=== PATIENT | female | born 1990 | race Two or more races ===

== ENCOUNTER 2017-05-31 14:49 | Emergency (ER) | payer MEDICAID ==
[~2017-05-31] VITALS: Ht 162.6 cm; Wt 104.8 kg
[~2017-05-31 14:49] MED LIST: CEPHALEXIN500 MG ORAL; CIPRO500 MG PO; DOXYCYCLINE MO100 MG ORAL; FERROUS SULFAT325 MG PO; HUMALOG; IBUPROFEN600 MG ORAL; IRON; KEFLEX500 MG ORAL; LANTUS5 UNITS SUBQ; LO-OVRAL-281 EACH PO; MACROBID100 MG ORAL; NORGESTREL-ETH1 EAC1 PO; NOVOLOG100 UNIT/3 SUBQ; NYSTATIN-TRIAMC15 G2 TP; ONDANSETRON ODT4 MG PO; PHENAZOPYRIDIN100 MG ORAL; PHENAZOPYRIDIN200 MG ORAL; REGLAN10 MG PO; ZOFRAN4 MG ORAL
[2017-05-31 17:00] VITALS: BP 120/78
[2017-05-31 17:20] LABS: BASOPHILS % (AUTO) 0.7 % (0.0-2.0); EOSINOPHILS % (AUTO) 1.1 % (0.0-3.0); MEAN CORPUSCULAR HEMOGLOBIN 30.5 PG (27.0-31.0); MEAN CORPUSCULAR HGB CONC 32.9 G/DL (32.0-36.0); MEAN CORPUSCULAR VOLUME 93 FL (80-99); MEAN PLATELET VOLUME 7.9 FL (6.5-10.1); MONOCYTES % (AUTO) 5.9 % (1.0-10.0); NEUTROPHILS % (AUTO) 72.3 % (45.0-75.0); PLATELET COUNT 307 K/UL (150-450); RED BLOOD COUNT 4.23 M/UL (4.20-5.40); WHITE BLOOD COUNT 12.3 K/UL (4.8-10.8)
[2017-05-31 17:35] LABS: INR 0.9 (0.9-1.1); PROTHROMBIN TIME 9.9 SEC (9.30-11.50)
[2017-05-31 17:40] LABS: ALANINE AMINOTRANSFERASE 16 U/L (3-33); ALBUMIN/GLOBULIN RATIO 1.1 (1.0-2.7); ANION GAP 12 (5-15); ASPARTATE AMINO TRANSFERASE 13 U/L (5-40); CALCIUM 9.1 mg/dL (8.6-10.2); CARBON DIOXIDE 26 mEQ/L (20-30); CHLORIDE 102 mEQ/L (98-107); GLOMERULAR FILTRATION RATE > 60 mL/min (>60); HEMOLYSIS 1; SODIUM 140 mEQ/L (135-145)
[2017-05-31] MEDS ORDERED: NORGESTIMATE-E1 EAC1 PO (18:09)
[2017-05-31] MEDS ORDERED: IBUPROFEN600 MG ORAL (18:09)
[2017-05-31 18:20] VITALS: BP 118/68
--- NOTE | 2017-05-31 22:46 | Emergency Room Report ---
History of Present Illness General Chief Complaint: Female Urogenital Problems Source: Patient, Medical Record Present Illness HPI The patient is a 26-year-old female presenting with heavy vaginal bleeding. The patient states that she began her period 2 months prior and has been bleeding every day since then. She states that she has to change her pad every 5 minutes. She also describes pain as 10/10 dull ache to the vaginal region. She denies being on any medications including contraceptives. She denies radiating pain . She denies any other discharge. She denies dysuria or increased urinary frequency. She denies back pain. Allergies: Coded Allergies: No Known Allergies (Unverified , 02/14/16) Patient History Past Medical History: see triage record Pertinent Family History: none Last Menstrual Period: on period Now: No Reviewed Nursing Documentation: PMH: Agreed, PSxH: Agreed Nursing Documentation-PMH Past Medical History: No History, Except For Hx Diabetes: Yes - type 1 Hx Gastrointestinal Problems: Yes - ANEMIA Review of Systems All Other Systems: negative except mentioned in HPI Physical Exam Vital Signs Date Time Temp Pulse Resp B/P Pulse Ox O2 Delivery O2 Flow Rate FiO2 05/31/17 15:21 98.2 85 19 115/80 98 Room Air Sp02 EP Interpretation: reviewed, normal General Appearance: no apparent distress, alert, GCS 15, non-toxic Head: normocephalic, atraumatic Eyes: bilateral eye PERRL, bilateral eye normal inspection ENT: hearing grossly normal, normal pharynx, no angioedema, normal voice Neck: full range of motion, supple/symm/no masses Respiratory: chest non-tender, lungs clear, normal breath sounds, speaking full sentences Cardiovascular #1: regular rate, rhythm, no edema Gastrointestinal: normal bowel sounds, non tender, soft, non-distended, no guarding, no rebound Rectal: deferred Genitourinary: normal inspection, no CVA tenderness Musculoskeletal: back normal, gait/station normal, normal range of motion, non- tender Neurologic: alert, oriented x3, responsive, motor strength/tone normal, sensory intact, speech normal Psychiatric: judgement/insight normal, memory normal, mood/affect normal, no suicidal/homicidal ideation Skin: normal color, no rash, warm/dry, well hydrated Medical Decision Making PA Attestation Dr. Terry is my supervising physician. Patient management was discussed with my supervising physician Diagnostic Impression: Primary Impression: Dysfunctional uterine bleeding ER Course The patient is a 26-year-old female presenting with heavy vaginal bleeding. Differential diagnosis considered but not limited to: UTI, vaginitis, , DUB, uterine fibroids, among others PE: vitals WNL. NAD Abdomen: Normal appearance. Non distended. No ecchymosis. Normal BS. Non TTP. No McBurney point tenderness. No guarding. No CVA tenderness blood work shows mild leukocytosis, otherwise unremarkable No . Pt refused to provide urine. Pelvic US unremarkable. No fibroids. [facility] and low dose OCP. SHe needs to FU with PMD and OBGYN JOSE Laboratory Tests Test 05/31/17 16:45 White Blood Count 12.3 K/UL (4.8-10.8) H Red Blood Count 4.23 M/UL (4.20-5.40) Hemoglobin 12.9 G/DL (12.0-16.0) Hematocrit 39.3 % (37.0-47.0) Mean Corpuscular Volume 93 FL (80-99) Mean Corpuscular Hemoglobin 30.5 PG (27.0-31.0) Mean Corpuscular Hemoglobin Concent 32.9 G/DL (32.0-36.0) Red Cell Distribution Width 13.0 % (11.6-14.8) Platelet Count 307 K/UL (150-450) Mean Platelet Volume 7.9 FL (6.5-10.1) Neutrophils (%) (Auto) 72.3 % (45.0-75.0) Lymphocytes (%) (Auto) 20.0 % (20.0-45.0) Monocytes (%) (Auto) 5.9 % (1.0-10.0) Eosinophils (%) (Auto) 1.1 % (0.0-3.0) Basophils (%) (Auto) 0.7 % (0.0-2.0) Prothrombin Time 9.9 SEC (9.30-11.50) Prothrombin Time INR 0.9 (0.9-1.1) PTT 26 SEC (23-33) Sodium Level 140 mEQ/L (135-145) Potassium Level 4.0 mEQ/L (3.4-4.9) Chloride Level 102 mEQ/L (98-107) Carbon Dioxide Level 26 mEQ/L (20-30) Anion Gap 12 (5-15) Blood Urea Nitrogen 14 mg/dL (7-23) Creatinine 1.0 mg/dL (0.5-0.9) H Estimate Glomerular Filtration Rate > 60 mL/min (>60) Glucose Level 164 mg/dL (74-106) H Calcium Level 9.1 mg/dL (8.6-10.2) Total Bilirubin 0.3 mg/dL (0.0-1.2) Aspartate Amino Transferase (AST) 13 U/L (5-40) Alanine Aminotransferase (ALT) 16 U/L (3-33) Alkaline Phosphatase 97 U/L (35-104) Total Protein 7.0 g/dL (6.6-8.7) Albumin 3.8 g/dL (3.5-5.2) Globulin 3.2 g/dL Albumin/Globulin Ratio 1.1 (1.0-2.7) Human Chorionic Gonadotropin, Quant < 1 mIU/mL Lab Results Impression mild leukocytosis otherwise unremarkable CT/MRI/US Diagnostic Results CT/MRI/US Diagnostic Results : Imaging Test Ordered: Pelvic US Impression Unremarkable Last Vital Signs Date Time Temp Pulse Resp B/P Pulse Ox O2 Delivery O2 Flow Rate FiO2 05/31/17 18:20 98.2 78 20 118/68 100 Room Air Status: improved Disposition: HOME, SELF-CARE Condition: Improved Scripts Norgestimate-Ethinyl Estradiol (NORGESTIMATE-ETHINYL ESTRADIOL) 1 Each Tablet 1 EACH PO DAILY, #30 TAB Prov: WIN LU P.A. 05/31/17 Ibuprofen* (MOTRIN*) 600 Mg Tablet 600 MG ORAL Q8H Y for For Pain, #30 TAB 0 Refills Prov: TERZIANLUIS FERNANDOY P.A. 05/31/17 Patient Instructions: Metrorrhagia, Abnormal Uterine Bleeding, [id number] Additional Instructions: I discussed my findings with the patient. All questions and concerns have been answered. Treatment and medication compliance have been addressed. I advised the patient that they need to follow up with PMD in 3-5 days. Return to ED if symptoms worsen, new symptoms arise, or if needed for any reason. Patient verbalized understanding of discharge instructions. WIN LU.ANathan May 31, 2017 22:46
--- NOTE | 2017-06-01 09:47 | Diagnostic Imaging Report ---
Indications: Pelvic pain, vaginal bleeding for 2 months, LMP not given Technique: Transabdominal and transvaginal real-time grayscale and duplex Doppler imaging of the pelvis was performed. Findings: Comparison: 04/28/08 Uterus measures 10.4 x 5.4 x 5.2cm. It demonstrates normal contour and myometrial echotexture without focal abnormality. The endometrial complex measures 13 mm in diameter. It is unremarkable in appearance without obvious focal abnormality. Heterogeneity in region of endocervical canal.. No free fluid is present in the cul-de-sac. Right ovary measures 3.6 x 2.9 x 2.4 cm. Contains 1 cm cystic structure with internal echoes.. Duplex Doppler imaging demonstrates normal blood flow. No extra-ovarian abnormality is seen. Left ovary measures 3.1 x 3 x 1.8 cm. Contains multiple peripheral focus.. Duplex Doppler imaging demonstrates normal blood flow. No extra-ovarian abnormality is seen. IMPRESSION: Cervical findings most compatible with passing blood clot. Underlying pathology not excludable. Correlate with serum quantitative beta hCG level. Probable hemorrhagic physiologic cyst right ovary
== END 2017-05-31 18:31 | disposition home or self-care (01) ==
LOC: EMR 15:17
DX: N93.9 Abnormal uterine and vaginal bleeding, unspecified (principal); E10.8 Type 1 diabetes mellitus with unspecified complications; D72.829 Elevated white blood cell count, unspecified
CPT/HCPCS: 36415; 76830; 76856; 80053; 84702; 85025; 85610; 85730; 99284

== ENCOUNTER 2018-06-20 09:14 | Emergency (ER) | payer MEDICAID ==
[~2018-06-20] VITALS: Ht 162.6 cm; Wt 102.1 kg
[~2018-06-20 09:14] MED LIST changes: +NORGESTIMATE-E1 EAC1 PO
--- NOTE | 2018-06-20 10:26 | Emergency Room Report ---
History of Present Illness General Chief Complaint: Medication Refill Source: Patient Present Illness HPI 27-year-old female, type I diabetic, has been giving herself insulin since age 14, reports that she was visiting [place] and lost her insulin, and she is having trouble with her ensure been willing to pay for her insulin. She has her Lantus, long-acting insulin she takes night, but she is looking for sources for her Humalog, which she takes 5 times a day, and doses herself based on a formula accounting for her her carbohydrate intake and Accu-Chek results. She actually requests if we have any samples, because her ensure will not approve the prescription for the insulin for another month. She's not been sick lately , and she just ran out. Allergies: Coded Allergies: No Known Allergies (Unverified , 02/14/16) Patient History Past Medical History: see triage record Last Menstrual Period: March 2018 Now: No Reviewed Nursing Documentation: PMH: Agreed; PSxH: Agreed Nursing Documentation-PMH Past Medical History: No History, Except For Hx Diabetes: Yes - Type 1 Hx Gastrointestinal Problems: Yes - ANEMIA Review of Systems All Other Systems: negative except mentioned in HPI Physical Exam Vital Signs Date Time Temp Pulse Resp B/P (MAP) Pulse Ox O2 Delivery O2 Flow Rate FiO2 06/20/18 09:23 98.7 90 18 124/87 97 Room Air 98.8 Sp02 EP Interpretation: reviewed, normal General Appearance: no apparent distress, alert, non-toxic Head: normocephalic Eyes: bilateral eye normal inspection, bilateral eye PERRL, bilateral eye EOMI ENT: normal ENT inspection, hearing grossly normal, normal pharynx, no angioedema, normal voice, moist mucus membranes Neck: normal inspection, full range of motion, supple, supple/symm/no masses Respiratory: chest non-tender, chest symmetrical Cardiovascular #1: normal peripheral pulses, regular rate, rhythm Cardiovascular #2: 2+ radial (R), 2+ radial (L) Gastrointestinal: no mass Rectal: deferred Genitourinary: normal inspection, no CVA tenderness Musculoskeletal: gait/station normal, normal range of motion Neurologic: alert, responsive, motor strength/tone normal, sensory intact, normal gait, speech normal Psychiatric: judgement/insight normal, memory normal, mood/affect normal Skin: normal color, no rash, warm/dry, normal turgor Medical Decision Making Diagnostic Impression: Primary Impression: Encounter for medication refill ER Course Patient is very reliable, a patient of Dr. Lyssa Bravo, and I will write her a refill of her Humalog, she already knows how to dose it, however am not sure that this will be sufficient for her, as we cannot give her any free insulin. She has all her supplies, she just needs insulin and it will be many 100s of dollars since her insurance will not refill it given that she lost her insulin. Last Vital Signs Date Time Temp Pulse Resp B/P (MAP) Pulse Ox O2 Delivery O2 Flow Rate FiO2 06/20/18 09:23 98.7 90 18 124/87 97 Room Air 98.8 Disposition: HOME, SELF-CARE Condition: Stable Referrals: ASHLEY SCHNEIDER,REFERRING (PCP) NOELLE CAMARENA M.D Jun 20, 2018 10:26
[2018-06-20] MEDS ORDERED: HUMALOG 75/255 UNIT1 SUBQ (10:27)
[2018-06-20 11:06] VITALS: BP_SYST 124; BP_SYST 132; BP_DIAS 79; BP_DIAS 87
== END 2018-06-20 11:07 | disposition home or self-care (01) ==
LOC: EMR 09:41
DX: Z76.0 Encounter for issue of repeat prescription (principal); E10.9 Type 1 diabetes mellitus without complications
CPT/HCPCS: 99282